=== PATIENT | female | born 1960 | race Caucasian/White ===

== ENCOUNTER 2016-03-21 20:47 | Emergency (ER) | payer OTHER ==
[~2016-03-21] VITALS: Ht 162.6 cm; Wt 84.5 kg
[2016-03-21] MEDS ORDERED: PERCOCET 5/31 TABLET PO (22:09)
[2016-03-21] MEDS ORDERED: PREDNISONE20 MG PO (22:09)
[2016-03-21] MEDS ORDERED: VALIUM5 MG PO (22:09)
[2016-03-21 22:20] VITALS: BP 127/84
== END 2016-03-21 22:27 | disposition home or self-care (01) ==
LOC: EME 20:47 → EXP 20:47
DX: M54.41 Lumbago with sciatica, right side (principal)
CPT/HCPCS: 99281; 99284; J1170; J1885